=== PATIENT | female | born 1965 | race Caucasian/White ===

== ENCOUNTER 2017-10-08 07:55 | Observation (INO) | payer OTHER ==
[2017-10-07 12:55] LABS: BASOPHILS # (AUTO) 0.1 (0.0-0.1); BASOPHILS % 0.7 % (0.0-1.0); EOSINOPHILS # (AUTO) 0.2 (0.0-0.4); EOSINOPHILS % 3.1 % (0.0-6.0); HEMATOCRIT 42.1 % (34.2-44.1); HEMOGLOBIN 13.5 g/dL (12.0-16.0); LYMPHOCYTES % 29.2 % (18.0-39.1); MEAN CORPUSCULAR HEMOGLOBIN 26.6 pg (28-32); MEAN CORPUSCULAR HGB CONC 32.1 g/dL (31-35); MEAN CORPUSCULAR VOLUME 82.9 fL (81-99); MONOCYTES # (AUTO) 0.5 (0.2-0.8); MONOCYTES % 7.3 % (4.4-11.3); NEUTROPHILS # (AUTO) 4.1 (2.1-6.9); NEUTROPHILS % 59.4 % (38.7-80.0); PLATELET COUNT 261 x10e3/uL (140-360); RED BLOOD COUNT 5.08 x10e6/uL (3.6-5.1)
[2017-10-07 13:06] LABS: INR 0.99; PROTHROMBIN TIME 12.3 seconds (11.9-14.5)
[2017-10-07 13:14] LABS: ANION GAP 14.1 mmol/L (8-16); BLOOD UREA NITROGEN 12 mg/dL (7-26); BUN/CREATININE RATIO 15 (6-25); CALCIUM 9.4 mg/dL (8.4-10.2); CARBON DIOXIDE 25 mmol/L (22-29); CHLORIDE 105 mmol/L (98-107); EST GLOMERULAR FILTRATION RATE > 60 ML/MIN (60-); GLUCOSE 94 mg/dL (74-118); POTASSIUM 4.1 mmol/L (3.5-5.1); SODIUM 140 mmol/L (136-145)
[2017-10-08] VITALS (15 sets, daily range): BP systolic 102–145; BP diastolic 61–91
[~2017-10-08] VITALS: Ht 154.9 cm; Wt 98.9 kg
[~2017-10-08 07:55] MED LIST: ASPIRIN81 MG PO; PRILOSEC10 M1 PO; SERTRALINE HCL50 MG PO
[2017-10-08] MEDS ORDERED: VERAPAMIL HCL 2.5 MG/ML 2 ML VIAL ONE (08:24)
[2017-10-08] MEDS ORDERED: HEPARIN SOD (PORCINE) 1000 UNIT/ML 30ML ONE (08:24)
[2017-10-08] MEDS ORDERED: IOPAMIDOL 370 MG/ML 200 ML INFUS..BTL INJ ONE ×2 (08:25→11:15)
[2017-10-08] MEDS ORDERED: MIDAZOLAM HCL 2 MG/2 ML VIAL ONE ×3 (08:25→11:07)
[2017-10-08] MEDS ORDERED: FENTANYL CITRATE/PF 100MCG/2 ML INJ ONE ×2 (08:25→11:07)
[2017-10-08] MEDS ORDERED: NITROGLYCERIN/D5W 200 MCG/ML 250 ML ONE (08:25)
[2017-10-08] MEDS ORDERED: SODIUM CHLORIDE 0.9% 1000ML 1,000 ML ONE (08:25)
[2017-10-08] MEDS ORDERED: HEPARIN SOD/SOD CHLORIDE 2,000 ML ONE (08:25)
[2017-10-08] MEDS ORDERED: LIDOCAINE HCL 2% LOCAL 20 ML VIAL ONE (10:16)
[2017-10-08] MEDS ORDERED: ASPIRIN 325 MG TAB ONE (11:57)
[2017-10-08] MEDS ORDERED: TICAGRELOR 90 MG TABLET ONE (11:57)
--- NOTE | 2017-10-08 15:19 | Operative Report ---
DATE OF PROCEDURE: October 08, 2017 PROCEDURES PERFORMED 1. Conscious sedation 1 hour. 2. Selective coronary angiography times two. 3. Selective angiography of the right upper extremity. 4. Left heart catheterization. 5. Percutaneous transluminal coronary angioplasty and drug-eluting stent placement to the first diagonal coronary artery. 6. Closure of the right common femoral arteriotomy site with a Mynx device. PREPROCEDURE DIAGNOSES 1. Chest pain. 2. Abnormal noninvasive stress test showing lateral ischemia. POSTPROCEDURE DIAGNOSIS: Coronary artery disease. ESTIMATED BLOOD LOSS: Less than 20 mL. SPECIMENS REMOVED: None. PROCEDURE DETAILS: After informed consent was obtained, the patient was brought to the cardiac catheterization laboratory in a fasting nonsedated state. Patient received fentanyl and midazolam for conscious sedation. Using a micropuncture needle, 2% lidocaine was infiltrated over the right anterior wrist for local anesthesia. I was able to gain access into the small radial artery; however, patient had significant amount of pain and vasospasm so I turned my attention to the groin. The sheath was removed and hemostasis was obtained via TR band. Next, 2% lidocaine was infiltrated over the right anterior groin for local anesthesia. Using a micropuncture needle, the right common femoral artery was accessed via the modified Seldinger technique and a 5-British sheath was placed. Next, diagnostic coronary angiography was performed using a 5-British JL4 and 3DRC catheters. Left heart catheterization was performed using a modified angled pigtail catheter. Diagnostic imaging revealed a significant 80% to 90% stenosis in the first diagonal coronary artery that correlated with the abnormality seen on the stress test. The sheath was exchanged for a 6-British sheath. Patient received systemic heparin for therapeutic anticoagulation. The left main was then cannulated with a 6-British XBLAD 3.0 guide catheter. I attempted to cross a luge wire into the diagonal; however, due to severe tortuosity this wire was unable to pass. Next, a Whisper wire was able to navigate across the stenosis and out into the distal vessel and used for support. The lesion was predilated with a 2 x 8 mm balloon. Next, I stented the lesion with a 2.25 x 18 Resolute Concord drug-eluting stent inflated to 14 atmospheres. Next, the stent was postdilated with a 2.75 noncompliant balloon. Final angiography revealed excellent stent apposition with brisk OMAR-3 flow distally. There was no evidence of edge dissection, distal embolization, or vessel perforation at the end of the case. Wire and guiding catheter were subsequently removed. A limited right femoral angiogram was performed and the site was deemed suitable for closure. Prior to this I performed peripheral angiography of the right upper extremity due to the patient having pain with 3DRC catheter. This revealed patent upper extremity vessels without any significant evidence of dissections. The sheath was removed and the arteriotomy site was closed with a Mynx device with excellent hemostasis. The patient tolerated the procedure well with no immediate complications, transported back to her room in stable condition. PROCEDURAL FINDINGS 1. The left main coronary artery is patent without significant coronary artery disease. 2. The left anterior descending coronary artery is a small to medium caliber vessel and has mid 20% diffuse stenosis. The first diagonal branch is a medium caliber vessel and has 2 bifurcating branches distally. The proximal portion of the first diagonal has 80% to 90% stenosis. 3. Left circumflex coronary artery is small, provides 1 obtuse marginal vessel. There are mild diffuse luminal irregularities present. 4. The right coronary artery is the dominant vessel and provides the posterolateral branch and the posterior descending coronary artery. There is a proximal 20% RCA stenosis. 5. The left ventricular end diastolic pressure was 14 mmHg with no aortic valve gradient present upon pullback. INTERVENTIONAL RESULTS: Successful percutaneous coronary intervention of the first diagonal coronary artery. Pre-PCI OMAR flow was 2. Post-PCI OMAR flow was 3. Postprocedural stenosis less than 10%. IMPRESSION AND PLAN: This is a 51-year-old woman who presented as an outpatient with chest pain, was found to have lateral ischemia on a noninvasive stress test. Patient was found to have significant coronary artery disease in the first diagonal branch and underwent successful percutaneous coronary intervention. Patient will receive optimal medical therapy and dual antiplatelet therapy for her coronary artery disease. Job#: [id number] [id number]
[2017-10-08] MEDS ORDERED: SODIUM CHLORIDE 0.9% 1000ML 1,000 ML IV SCH (17:00)
[2017-10-08] MEDS ORDERED: ACETYLCYSTEINE 200 MG/ML 4ML VIAL PO SCH (21:00)
[2017-10-09] VITALS: BP 110/56
[2017-10-09 04:00] VITALS: BP 114/76
[2017-10-09] MEDS ORDERED: BRILINTA90 MG PO (07:29)
[2017-10-09] MEDS ORDERED: ATORVASTATIN CA20 MG PO (07:29)
[2017-10-09] MEDS ORDERED: PANTOPRAZOLE SOD 40 MG TABEC PO SCH (07:30)
[2017-10-09 07:53] VITALS: BP 121/74
[2017-10-09] MEDS ORDERED: SERTRALINE HCL 50 MG TAB PO SCH (09:00)
[2017-10-09] MEDS ORDERED: ASPIRIN 81 MG CHEW TAB PO SCH (09:00)
[2017-10-09] MEDS ORDERED: OMEPRAZOLE MAGNESIUM 40 MG PO SCH (09:00)
== END 2017-10-09 08:42 | disposition home or self-care (01) ==
LOC: CATH LAB 07:55 → PACU V 16:29 → IMCU 16:44
PROVIDERS: ADMIT Internal Medicine Cardiovascular Disease; ATTEND Internal Medicine Cardiovascular Disease
DX: I25.10 Atherosclerotic heart disease of native coronary artery without angina pectoris (principal); R94.39 Abnormal result of other cardiovascular function study; K21.9 Gastro-esophageal reflux disease without esophagitis
CPT/HCPCS: 36415; 80048; 84702; 85025; 85347; 85610; 92928; 93005; 93458; C1725; C1769 ×2; C1874; C1887; G0378 ×2; J1644; J2001; J2250; J7030; Q9967